=== PATIENT | female | born 1950 ===

== ENCOUNTER 2017-03-26 08:37 | Outpatient (CLI) | payer OTHER ==
[~2017-03-26 08:37] MED LIST: HYDROCHLOROTHIA25 MG
== END 2017-03-26 08:48 | disposition home or self-care (01) ==
LOC: MAMO-SONO 08:37
DX: Z12.31 Encounter for screening mammogram for malignant neoplasm of breast (principal); N63.10 Unspecified lump in the right breast, unspecified quadrant; N63.20 Unspecified lump in the left breast, unspecified quadrant

== ENCOUNTER 2021-05-10 08:10 | Outpatient (CLI) | payer OTHER | END 2021-05-10 08:16 | disposition home or self-care (01) | LOC: RX STUDY 08:10 | PROVIDERS: ATTEND General Practice | DX: R13.13 Dysphagia, pharyngeal phase (principal); K21.9 Gastro-esophageal reflux disease without esophagitis ==

== ENCOUNTER 2024-04-15 10:21 | Inpatient (IN) | payer OTHER ==
[~2024-04-15] VITALS: Ht 152.4 cm; Wt 49.9 kg
[2024-04-15] MEDS ORDERED: TIROSINT25 MCG PO (10:36)
[2024-04-15] MEDS ORDERED: CLONAZEPAM0.25 MG PO (10:36)
[2024-04-15] MEDS ORDERED: PEPCID AC20 MG PO (10:36)
[2024-04-15] MEDS ORDERED: LOSARTAN POTASS50 MG PO (10:37)
[2024-04-15] MEDS ORDERED: ATORVASTATIN CA10 MG PO (10:37)
[2024-04-15] MEDS ORDERED: PIPERACILLIN/TAZOBACTAM SODIUM 3.375 GM VIAL IV ONE ×3 (11:08→21:36)
[2024-04-15] MEDS ORDERED: FAMOTIDINE/PF 20 MG/2 ML VIAL ONE (11:08)
[2024-04-15] MEDS ORDERED: FAMOtidine 10 MG/ML (4ML VIAL) IV ONE (11:15)
[2024-04-15] MEDS ORDERED: LEVALBUTEROL HCL 1.25 MG/3 ML SOLUTION IH STA (11:34)
[2024-04-15] MEDS ORDERED: METHYLPREDNISOLONE SOD SUCC 40 MG VIAL IV STA (11:34)
[2024-04-15] MEDS ORDERED: LEVALBUTEROL HCL 1.25 MG/3 ML SOLUTION IH ONE (11:37)
[2024-04-15] MEDS ORDERED: METHYLPREDNISOLONE SOD SUCC 40 MG VIAL ONE (11:37)
[2024-04-15 11:43] LABS: HEMATOCRIT 38.5 % (36.0-45.00); HEMOGLOBIN 12.9 g/dL (12.0-15.00); MEAN CELL VOLUME 80.7 fL (80.00-100.00); MEAN CORPUSCULAR HEMOGLOBIN 27.1 pg (27.00-32.0); MEAN CORPUSCULAR HGB CONC 33.5 g/dl (32.0-36.0); PLATELET COUNT 304 K/uL (150-450); RED BLOOD COUNT 4.77 M/uL (4.00-6.00)
[2024-04-15 12:03] LABS: INR 1.15; PARTIAL THROMBOPLASTIN TIME 26.4 SECONDS (22.0-34.0); PROTHROMBIN TIME 12.4 SECONDS (9.0-11.5)
[2024-04-15 12:04] LABS: ALBUMIN 3.2 gm/dL (3.4-5.0); BILIRUBIN TOTAL 0.45 mg/dL (0.3-1.2); CALCIUM 8.8 mg/dL (8.5-10.1); CREATININE SERUM 0.39 mg/dL (0.55-1.02); GFR 162.01; GLOBULINA 3.8 G/DL (2.4-3.5); POTASSIUM 3.58 mEq/L (3.5-5.1)
[2024-04-15 12:11] LABS: PH,URINE 5.5 (5.0-8.0); URINE APPEARANCE Cloudy; URINE BILIRRUBIN Negative (NEGATIVE); URINE BLOOD Negative; URINE COLOR Dark Yellow; URINE GLUCOSE Negative (NEGATIVE); URINE KETONE Trace (NEGATIVE); URINE LEUKOCYTE Small; URINE NITRATE Positive; URINE PROTEIN 30 (NEGATIVE)
[2024-04-15 12:14] LABS: URINE RBC 8.3 uL (0.0-20.8); URINE WBC 502.5 uL (0.0-23.2)
[2024-04-15 12:16] LABS: ABG PH 7.474 (7.35-7.45); ABG PO2 58.2 mmHg (80-100); ABG pCO2 34.4 mmHg (35-45); BASE EXCESS 1.6 mmol/l; BICARBONATE 24.7 mmol/l (23-25); SaO2 91.9 %; Tco2 25.7 mmol/l; allen test SATISFACTORY; o2 21 %; puncture site RADIAL RIGHT
[2024-04-15 12:37] LABS: URINE BACTERIA > 9821.5 uL (0.0-1933)
[2024-04-15] MEDS ORDERED: 0.9 % SODIUM CHLORIDE 1,000 ML IV SCH (20:15)
[2024-04-15] MEDS ORDERED: LEVALBUTEROL HCL 1.25 MG/3 ML SOLUTION IH SCH (20:18)
[2024-04-15] MEDS ORDERED: IPRATROPIUM BROMIDE 0.5 MG/2.5 ML AMPUL.NEB IH SCH (20:18)
[2024-04-15] MEDS ORDERED: PIPERACILLIN/TAZOBACTAM SODIUM 3.375 GM in DEXTROSE 5 % IN WATER 100 ML IV SCH (20:23)
[2024-04-15] MEDS ORDERED: ENALAPRILAT DIHYDRATE 1.25 MG/ML VIAL IV PRN (20:30)
[2024-04-15] MEDS ORDERED: ACETAMINOPHEN 500 MG GEL..CAP PO PRN (20:30)
[2024-04-15] MEDS ORDERED: CLONAZEPAM 0.5 MG TABLET PO SCH (20:30)
[2024-04-16] MEDS ORDERED: LEVOTHYROXINE SODIUM 25 MCG TABLET PO SCH (06:00)
[2024-04-16 06:31] VITALS: BP 106/55
[2024-04-16] MEDS ORDERED: ENOXAPARIN SODIUM 40 MG/0.4 ML SYRINGE SUBCUTANEO SCH (09:00)
[2024-04-16] MEDS ORDERED: CARBIDOPA/LEVODOPA 25/100 UDTAB PO SCH (09:00)
[2024-04-16] MEDS ORDERED: FAMOTIDINE/PF 20 MG in 0.9 % SODIUM CHLORIDE 8 ML IV PUSH SCH (09:00)
[2024-04-16 09:33] VITALS: BP 115/65
[2024-04-16 19:41] VITALS: BP 110/60; O2SAT 98
[2024-04-16] MEDS ORDERED: CLONAZEPAM 0.5 MG TABLET PO SCH (20:00)
[2024-04-17 01:45] VITALS: BP 113/64
[2024-04-17 05:47] LABS: HEMATOCRIT 36.1 % (36.0-45.00); HEMOGLOBIN 11.8 g/dL (12.0-15.00); MEAN CELL VOLUME 83.2 fL (80.00-100.00); MEAN CORPUSCULAR HEMOGLOBIN 27.2 pg (27.00-32.0); MEAN CORPUSCULAR HGB CONC 32.7 g/dl (32.0-36.0); PLATELET COUNT 252 K/uL (150-450); RED BLOOD COUNT 4.33 M/uL (4.00-6.00); RED CELL DISTRIBUTION WIDTH 15.2 % (11.5-14.5)
[2024-04-17 06:29] LABS: BILIRUBIN TOTAL 0.48 mg/dL (0.3-1.2); CALCIUM 8.7 mg/dL (8.5-10.1); CREATININE SERUM 0.49 mg/dL (0.55-1.02); GFR 124.49; GLOBULINA 3.2 G/DL (2.4-3.5); MAGNESIUM 2.1 mg/dL (1.8-2.4); PHOSPHOROUS 3.4 mg/dL (2.5-4.9); POTASSIUM 3.58 mEq/L (3.5-5.1); TOTAL PROTEIN 6.2 gm/dL (6.4-8.2)
[2024-04-17 06:39] LABS: C-REACTIVE PROTEIN 2.12 MG/DL (0.00-0.29)
[2024-04-17] MEDS ORDERED: PANTOPRAZOLE SODIUM 40 MG/VIAL VIAL IV SCH (09:00)
[2024-04-17] MEDS ORDERED: BACLOFEN 10 MG TABLET PO SCH ×2 (09:09→13:00)
[2024-04-17 09:30] VITALS: BP 107/63; O2SAT 99
[2024-04-17 18:53] VITALS: BP 117/61; O2SAT 100
[2024-04-17] MEDS ORDERED: FAMOTIDINE/PF 20 MG in 0.9 % SODIUM CHLORIDE 8 ML IV PUSH SCH (21:00)
[2024-04-18 01:31] VITALS: BP 157/69
[2024-04-18 08:26] VITALS: BP 117/66
[2024-04-18 18:46] VITALS: BP 123/72; O2SAT 100
[2024-04-18] MEDS ORDERED: LORazepam 2 MG/ML VIAL IV ONE (22:45)
[2024-04-19 02:15] VITALS: BP 102/55
[2024-04-19 08:20] VITALS: BP 108/62
[2024-04-19 17:46] VITALS: BP 108/62; O2SAT 100
[2024-04-20 02:04] VITALS: BP 96/62
[2024-04-20 09:28] VITALS: BP 128/82
[2024-04-20 09:30] VITALS: BP 116/73
[2024-04-20 17:50] VITALS: BP 139/68; O2SAT 98
[2024-04-21 02:58] VITALS: BP 114/58
[2024-04-21 09:45] VITALS: BP 140/73
[2024-04-21 18:32] VITALS: BP 114/64; O2SAT 99
[2024-04-22 01:33] VITALS: BP 120/74; O2SAT 100
[2024-04-22 08:58] VITALS: BP 126/75
[2024-04-22 16:55] VITALS: BP 141/85; O2SAT 98
[2024-04-23 01:36] VITALS: BP 90/62
[2024-04-23 06:10] LABS: HEMATOCRIT 36.7 % (36.0-45.00); HEMOGLOBIN 12.4 g/dL (12.0-15.00); MEAN CELL VOLUME 81.9 fL (80.00-100.00); MEAN CORPUSCULAR HEMOGLOBIN 27.6 pg (27.00-32.0); MEAN CORPUSCULAR HGB CONC 33.7 g/dl (32.0-36.0); PLATELET COUNT 253 K/uL (150-450); RED BLOOD COUNT 4.48 M/uL (4.00-6.00); RED CELL DISTRIBUTION WIDTH 15.4 % (11.5-14.5)
[2024-04-23 06:57] LABS: ALBUMIN 2.4 gm/dL (3.4-5.0); BILIRUBIN TOTAL 0.42 mg/dL (0.3-1.2); CALCIUM 8.4 mg/dL (8.5-10.1); CREATININE SERUM 0.32 mg/dL (0.55-1.02); GFR 203.56; GLOBULINA 3.1 G/DL (2.4-3.5); MAGNESIUM 1.8 mg/dL (1.8-2.4); PHOSPHOROUS 2.3 mg/dL (2.5-4.9); POTASSIUM 3.72 mEq/L (3.5-5.1); TOTAL PROTEIN 5.5 gm/dL (6.4-8.2)
[2024-04-23 06:59] LABS: C-REACTIVE PROTEIN 2.17 MG/DL (0.00-0.29)
[2024-04-23 10:07] VITALS: BP 120/68; O2SAT 100
[2024-04-23 18:18] VITALS: BP 138/78; O2SAT 99
[2024-04-24 02:12] VITALS: BP 135/71
[2024-04-24 08:00] VITALS: BP 144/71
[2024-04-24] MEDS ORDERED: BACLOFEN10 MG PO (09:25)
[2024-04-24] MEDS ORDERED: CARBIDOPA-LEVO1 EA10 PO (09:25)
[2024-04-24] MEDS ORDERED: LEVOTHYROXINE25 MCG PO (09:25)
[2024-04-24] MEDS ORDERED: PEPCID AC20 MG PO (09:26)
== END 2024-04-24 13:06 | disposition home or self-care (01) | DRG 178 ==
LOC: ER 10:21 → MEDJ 21:17
PROVIDERS: General Practice; Internal Medicine Infectious Disease; ADMIT Internal Medicine; ATTEND Internal Medicine
PROC: BW24ZZZ Computerized Tomography (CT Scan) of Chest and Abdomen (ICD-10-PCS; principal; 2024-04-15)
PROC: BW2FZZZ Computerized Tomography (CT Scan) of Neck (ICD-10-PCS; 2024-04-15)
DX: J69.0 Pneumonitis due to inhalation of food and vomit (principal); E46 Unspecified protein-calorie malnutrition; G23.1 Progressive supranuclear ophthalmoplegia [Steele-Richardson-Olszewski]; G20.A1 Parkinson's disease without dyskinesia, without mention of fluctuations; R13.19 Other dysphagia; G24.4 Idiopathic orofacial dystonia; J44.9 Chronic obstructive pulmonary disease, unspecified; K44.9 Diaphragmatic hernia without obstruction or gangrene; K21.9 Gastro-esophageal reflux disease without esophagitis; R09.02 Hypoxemia; E03.9 Hypothyroidism, unspecified; I10 Essential (primary) hypertension; E78.5 Hyperlipidemia, unspecified